=== PATIENT | male | born 1970 | race Caucasian/White ===

== ENCOUNTER 2018-06-14 11:45 | Emergency (ER) | payer MEDICARE ==
[~2018-06-14] VITALS: Ht 162.6 cm; Wt 81.8 kg
[2018-06-14 11:53] VITALS: Ht 162.6 cm; Wt 81.8 kg
[2018-06-14] MEDS ORDERED: ADVIL200 MG PO (11:53)
[2018-06-14] MEDS ORDERED: ACETAMINOPHEN325 MG PO (11:54)
[2018-06-14] MEDS ORDERED: MOBIC7.5 MG PO (11:55)
[2018-06-14] MEDS ORDERED: SYNTHROID25 MCG PO (11:55)
[2018-06-14] MEDS ORDERED: LISINOPRIL40 MG PO (11:55)
[2018-06-14] MEDS ORDERED: K-DUR20 MEQ PO (11:56)
[2018-06-14] MEDS ORDERED: FLOMAX0.4 MG PO (11:58)
[2018-06-14] MEDS ORDERED: AMITRIPTYLINE H50 MG PO (11:58)
[2018-06-14] MEDS ORDERED: ZANAFLEX4 MG PO (11:59)
[2018-06-14 12:30] LABS: BASOPHILS 0.4 % (0-2); HEMATOCRIT 41.4 % (42.0-54.0); HEMOGLOBIN 14.6 g/dL (13.5-17.5); IMMATURE GRANULOCYTES 0.6 % (0-5); MCH 31.9 pg (26.0-34.0); MCHC 35.3 g/dL (31.0-37.0); MCV 90.6 fL (80.0-100.0); MEAN PLATELET VOLUME 9.1 fL (7.4-10.4); MONOCYTES 6.6 % (2-11); NEUTROPHILS 56.4 % (40-80); PLATELET COUNT 259 10x3/uL (130-400); RBC 4.57 10x6/uL (4.20-6.10); RDW 13.8 % (11.5-14.5)
[2018-06-14 12:37] LABS: APPEARANCE CLEAR (CLEAR); BILIRUBIN NEGATIVE (NEGATIVE); COLOR YELLOW (YELLOW); GLUCOSE NEGATIVE (NEGATIVE); KETONE NEGATIVE (NEGATIVE); NITRITE NEGATIVE (NEGATIVE); PROTEIN NEGATIVE (NEGATIVE); SPECIFIC GRAVITY 1.005 (1.005-1.020); UROBILINOGEN NORMAL (NORMAL)
[2018-06-14 12:50] LABS: ALBUMIN 3.4 g/dL (3.4-5.0); ALKALINE PHOSPHATASE 165 U/L (46-116); ALT (SGPT) 20 U/L (10-68); BILIRUBIN - TOTAL 0.31 mg/dL (0.2-1.3); CALC OSMOLALITY 265 mosm/kg (275-300); CALCIUM 8.6 mg/dL (8.5-10.1); CARBON DIOXIDE 27.9 mmol/L (21.0-32.0); CHLORIDE - SERUM 99 mmol/L (98-107); CREATININE - SERUM 0.8 mg/dL (0.6-1.3); GLUCOSE 90 mg/dL (74-106); POTASSIUM - SERUM 5.2 mmol/L (3.5-5.1); PROTEIN - SERUM 6.3 g/dL (6.4-8.2); SODIUM 134 mmol/L (136-145); UREA NITROGEN 7 mg/dL (7-18); eGFR NON AFRICAN AMERICAN > 90 mL/min (90-120)
[2018-06-14 13:14] LABS: UDS - AMPHET NEGATIVE QUAL (NEGATIVE); UDS - BARB NEGATIVE QUAL (NEGATIVE); UDS - BENZO NEGATIVE QUAL (NEGATIVE); UDS - COCAINE NEGATIVE QUAL (NEGATIVE); UDS - OPIATE NEGATIVE QUAL (NEGATIVE); UDS - PCP NEGATIVE QUAL (NEGATIVE); UDS - THC NEGATIVE QUAL (NEGATIVE)
[2018-06-14 21:08] VITALS: BP 133/88
== END 2018-06-14 21:10 ==
LOC: D.ER 11:45
PROVIDERS: Family Medicine
DX: R45.851 Suicidal ideations (principal); I10 Essential (primary) hypertension; Z86.59 Personal history of other mental and behavioral disorders; F17.200 Nicotine dependence, unspecified, uncomplicated